=== PATIENT | female | born 1970 | race Caucasian/White ===

== ENCOUNTER 2019-04-06 12:16 | Day surgery (SDC) | payer BC ==
[~2019-04-06] VITALS: Ht 165.1 cm; Wt 67.8 kg
[2019-04-06] VITALS (20 sets, daily range): BP systolic 102–141; BP diastolic 49–67; PULSE 54–68; RESP 16–22; Ht 165.1 cm; Wt 67.8 kg
[2019-04-06] MEDS ORDERED: LACTATED RINGER'S 1,000 ML IV SCH (14:46)
--- NOTE | 2019-04-06 14:46 | HPN ---
Date/Time of Note Date/Time of Note DATE: 04/06/19 TIME: 14:46 Interval H&P Admission Note Pt. seen H&P reviewed: No system changes JERRY CHIU MD Apr 06, 2019 14:46
[2019-04-06] MEDS ORDERED: CEFAZOLIN 2 GM/50 ML (PMX) 50 ML IVPB ONE (15:00)
[2019-04-06] MEDS ORDERED: HEPARIN 5,000 UNIT/1 ML VIAL SC ONE ×2 (15:00→20:00)
--- NOTE | 2019-04-06 15:37 | PREAC ---
Date/Time of Note Date/Time of Note DATE: 04/06/19 TIME: 15:36 Anesthesia Eval and Record Evaluation Time Pre-Procedure Interview DATE: 04/06/19 TIME: 15:36 Age 49 Sex female NPO: 8 hrs Preoperative diagnosis Endometriosis Planned procedure Exploratory laparoscopy Past Medical History Past Medical History: None Surgery & Anesthesia Issues No known issue Meds Anticoagulation: No Beta Reggie within 24 hr: No Reason Beta Reggie not given: Pt. not on B-Reggie No Active Prescriptions or Reported Meds Current Medications Lactated Ringer's 1,000 ml @ 125 mls/hr Q8H IV ; Start 04/06/19 at 14:46 Meds reviewed: Yes Allergies Coded Allergies: No Known Allergy (Unverified , 04/06/19) Allergies Reviewed: Yes Labs/Studies Labs Reviewed: Reviewed by anesthesiologist Result Diagram: 04/06/19 1320 04/06/19 1320 Laboratory Tests 04/06/19 13:20 test: Negative Studies: ECG Pre-procedure Exam Last vitals Vital Signs Date Temp Pulse Resp B/P (MAP) Pulse Ox O2 O2 Flow FiO2 Time Delivery Rate 04/06/19 98.7 67 16 141/67 100 Room Air 13:00 (91) Airway: Adequate mouth opening, Adequate thyromental dist Mallampati: Mallampati II Teeth: Normal Lung: Normal Heart: Normal ASA Physical Status ASA physical status: 2 Emergency: None Planned Anesthetic General/MAC: ETT Planned Pain Management Sub-arachniod narcotics, Parenteral pain med Pre-operative Attestations Prior to commencing anesthesia and surgery, the patient was re-evaluated, there was verification of: *The patient's identity *The results of appropriate recent lab work and preoperative vital signs *The above evaluation not changing prior to induction *Anesthetic plan, risk benefits, alternative and complications discussed with patient/family; questions answered; patient/family understands, accepts and wishes to proceed. ISAMAR BEST MD Apr 06, 2019 15:37
[2019-04-06] MEDS ORDERED: MIDAZOLAM 1 MG/ML 2 ML INJ ONE (15:38)
[2019-04-06] MEDS ORDERED: morphine SULFATE/PF (10 MG/10 ML) INJ ONE (15:39)
[2019-04-06] MEDS ORDERED: FENTAnyl 50 MCG/ML VIAL ONE (15:39)
[2019-04-06] MEDS ORDERED: BUPIVACAINE 0.25%/EPI (SDV) 10 ML INJ ONE ×2 (16:21→16:53)
[2019-04-06] MEDS ORDERED: FUROSEMIDE 20 MG INJ ONE (18:00)
--- NOTE | 2019-04-06 18:03 | OPR ---
Date/Time of Note Date/Time of Note DATE: 04/06/19 TIME: 17:56 Operative Report Procedure Date: Apr 06, 2019 Preoperative Diagnosis Endometriosis Dense intra-abdominal adhesions Postoperative Diagnosis Same Operation/Procedure Performed Laparoscopic lysis of intestinal adhesions Surgeon see signature line Inspector Fuel Hose Dr. Gonzalez Anesthesia Type: general Estimated Blood Loss: none Transfusion none Specimen none Grafts/Implants none Complications none Pt Condition Post Procedure: stable Disposition: PACU Indications Patient is undergoing laparoscopic removal of bilateral ovarian cysts from endometriosis. Adhesions between the sigmoid colon and the ovary and uterus were encountered. I was intraoperatively consulted to help management via enterolysis Procedure Description An additional RUQ port was placed and thereafter the laparoscopic scissors were used to lyse adhesions between the bowel and the ovary and uterus taking care to avoid injury to bowel tissue. Some bleeding from some cut uterine tissue was encountered and this was controlled with johnson beam coagulation. The area of enterolysis was thoroughly inpected and confirmed to be free of injury. MANA ALLEN Apr 06, 2019 18:03
[2019-04-06] MEDS ORDERED: NEOSTIGMINE 3 MG/3 ML SYRINGE ONE (18:13)
[2019-04-06] MEDS ORDERED: LIDOCAINE 2% (SDV) 5 ML INJ ONE (18:13)
[2019-04-06] MEDS ORDERED: PROPOFOL 20 ML ONE (18:13)
[2019-04-06] MEDS ORDERED: ROCURONIUM 50 MG INJ ONE (18:13)
[2019-04-06] MEDS ORDERED: ONDANSETRON 4 MG INJ ONE (18:14)
[2019-04-06] MEDS ORDERED: GLYCOPYRROLATE 0.4 MG INJ ONE (18:14)
[2019-04-06] MEDS ORDERED: CEFAZOLIN 1 GM INJ ONE (18:18)
--- NOTE | 2019-04-06 18:21 | OPR ---
Date/Time of Note Date/Time of Note DATE: 04/06/19 TIME: 18:13 Operative Report Free Text/Dictation April 06, 2019 Procedure Date: Apr 06, 2019 Preoperative Diagnosis 1. Dyspareunia 2.Dysmenorrhea 3. Pelvic pain 4 bilateral. Ovarian endometrioma, symptomatic Patient requests surgical management Postoperative Diagnosis Severe pelvic endometriosis as well as bilateral ovarian endometrioma with obliterated cul-de-sac and adhesion of both endometrioma to the lateral pelvic fold some as well as adhesion of the sigmoid colon to posterior uterine wall noted. Small fibroid noted. Appears to be intramural. Evidence of inguinal hernia in the left side noted Operation/Procedure Performed Diagnostic laparoscopy Pelvic washing Laparoscopic bilateral ovarian cystectomy with fulguration of endometrial implants Extensive lysis of adhesion Intra-Op consult with general surgeon with lysis of adhesion of sigmoid to posterior uterine wall Surgeon see signature line Automatic Oven Operator Dr. Johnny Leonard MD Anesthesia Type: general, spinal Anesthesiologist: ISAMAR BEST MD Estimated Blood Loss: 50 - 100 ml's Transfusion none Specimen Bilateral ovarian cyst wall pelvic washing Grafts/Implants none Complications none Pt Condition Post Procedure: stable Disposition: PACU Procedure Description 49-year-old female with history of bilateral ovarian endometrioma and pelvic pain, dyspareunia dysmenorrhea that noted to have increased size of the bilateral ovarian endometrioma and desires to proceed with surgical management. Risk and benefit of procedure including risk of infection, bleeding, damage to surrounding structures including bowel and bladder and risk of transfusion including but not limited to blood borne infection including HIV, hepatitis B C and transfusion reaction as well as risk of conversion to open procedure discussed with patient informed consent was obtained. Patient was consented for diagnostic laparoscopy, laparoscopic bilateral ovarian cystectomy possible open possible blood transfusion possible lysis of adhesion possible any other indicated procedure. Patient then received 2 g of Ancef was taken to the OR. She received a dose of 5000 units of subcutaneous heparin due to the fact the patient was on OCP up to 3 4 days prior to surgery. Patient was then placed in the dorsolithotomy position. Exam under anesthesia performed after timeout procedure. Then after prepped and draped in a sterile fashion a weighted speculum placed inside the vagina. Anterior lip of the cervix grasped using tenaculum. Uterine depth was measured using uterine sound was noted to be about 11 inch. Then using Hegar dilators the cervix was serially dilated until it accommodated HUMI manipulator then the HUMI manipulator was placed and balloon was inflated and transfixed. Then the instrument removed from vagina. Gloves was changed. Attention was turned to the abdomen where first a 5 mm incision was made inside the umbilicus. Then using Veress needle after 2 stop sound and negative aspiration positive saline drop test confirmed accurate placement of the Veress needle. Insufflation started. Filling pressure was -3. Insufflation performed after adequate insufflation and the Veress needle was removed by using 5 mm trocar under direct visualization passed through the abdominal wall into the abdomen successfully. Intra-abdominal and pelvis cavity was visualized and evaluated. Uterus was in the midline with evidence of a 2 cm intramural fibroid. Then upper abdomen was also evaluated that was normal. There was evidence of inguinal hernia in the left side noted. Due to difficulty visualization of ovaries and tubes first the second trocar 5 mm in the left lower quadrant after negative transillumination test under direct visualization was passed through the abdominal wall and then this third trocar which was a 12 mm trocar in the right lower quadrant after negative transillumination test and under direct visualization passed through the abdominal wall. Then using a grasper ovaries and tubes in both side evaluated. There was evidence of dense adhesion of the ovary into the pelvic foci in both side and it appeared both ovaries and have endometrioma bilaterally. There was evidence of a dense adhesion of the posterior uterine wall to the sigmoid colon as well as obliterated cul-de-sac was also noted. At this point first attempted was made to perform lysis of adhesion of the ovarian cyst in the right side. First washing of the pelvis performed and fluid was sent to pathology then using atraumatic grasper and subsequently EndoShears scissor gentle leave the adhesion of the right endometrioma to the cul-de-sac was lysed and during lysis of adhesion the cyst was ruptured and chocolate cyst containing material was drained and was immediately suctioned. Then attempt was made to remove the cyst wall however due to dense adhesion I could be able to remove partially the cyst wall and the specimen was sent to pathology. Then the entire cyst wall bed was coagulated using argon. Then the procedure proceeded in a similar fashion in the left side where using atraumatic grasper as well as [place] attempt was made to lyse adhesion of the cyst in the left side from the left pelvic. However during the lysis of adhesion the cyst opened and chocolate cyst material was drained that was immediately suctioned. Again the cyst on the left side in a similar fashion in several specimen partially removed and was sent to pathology and then the entire bed of the cyst on the left side was also coagulated using argon. Good hemostasis of the operative site in both sides was obtained. There was evidence of dense adhesion of the sigmoid colon to the posterior uterine wall. Intra-Op consult with was performed with general surgeon who could be able to partially lyse adhesion of the sigmoid colon to the posterior uterine wall. Please refer to Dr. Leonard;s note for this part of dictation. The sigmoid colon and the bowel appeared to be intact during the procedure. Small archana to the muscle of the uterus in the posterior aspect where there was a dhesion of the sigmoid to the posterior uterine wall noted that appeared to be oozing mildly and the oozing was controlled using argon beam as well as packing using fibrillar. After irrigation and assurance about adequate hemostasis using negative pressure check then upper abdomen and the rest of the pelvis and the abdomen was visualized and evaluated. After assurance about adequate hemostasis then instrument removed. Desufflation of the abdomen and pelvis performed while patient was in deep Trendelenburg and then the skin is all 4 trocar site repaired using 4-0 Monocryl. Of note that the fourth trocar was placed as well in the right lateral abdomen by general surgeon during lysis of pelvic adhesion. Of note that at all times during the procedure attention was turned carefully to the bowel and ureter. Operative site and the cyst area was away from the ureter. Of note that due to significant dense adhesion in the cul-de-sac consistent with severe endometriosis could not be able to trace the ureter at the level of the cul-de-sac however area of operation were all away from the ureter. Ureters were seen and visualized at the level of the pelvic brim. After completion of the abdominal procedure the trocar site repaired and then the attention was turned to the vagina where the HUMI manipulator was removed after desufflation of the balloon. Patient tolerated the procedure well. Sponge lap needle counts were correct x2 patient was then transferred to recovery room in stable condition Due to significant lysis of pelvic adhesion and the fact that patient received spinal anesthesia by anesthesiologist and the risk of urinary retention with Duramorph decision was made to keep the patient overnight. JERRY CHIU MD Apr 06, 2019 18:21
--- NOTE | 2019-04-06 18:34 | PAC ---
Date/Time of Note Date/Time of Note DATE: 04/06/19 TIME: 18:34 Post-Anesthesia Notes Post-Anesthesia Note Last documented vital signs Vital Signs Date Temp Pulse Resp B/P (MAP) Pulse Ox O2 O2 Flow FiO2 Time Delivery Rate 04/06/19 98.7 67 16 141/67 100 Room Air 13:00 (91) Activity: WNL Respiratory function: WNL Cardiovascular function: WNL Mental status: Baseline Pain reasonably controlled: Yes Hydration appropriate: Yes Nausea/Vomiting absent: Yes Comments BP:112/56, P:78, Spo2:100%, T:98,8 ISAMAR BEST MD Apr 06, 2019 18:34
[2019-04-06] MEDS: LACTATED RINGER'S 1,000 ML IV SCH (18:50)
[2019-04-06] MEDS ORDERED: HYDROmorphONE 1 MG/5 ML IV SYRINGE IV PRN ×2 (19:00)
[2019-04-06] MEDS ORDERED: FENTAnyl 50 MCG/ML VIAL IV PRN (19:00)
[2019-04-06] MEDS ORDERED: ONDANSETRON 4 MG INJ IV PRN (19:00)
[2019-04-06] MEDS ORDERED: OXYCODONE/ACETAMINOPHEN (5/325) TAB PO PRN (19:00)
[2019-04-06] MEDS ORDERED: DIPHENHYDRAMINE 50 MG INJ IV PRN (19:00)
[2019-04-06] MEDS ORDERED: MEPERIDINE 25 MG INJ IV PRN (19:00)
[2019-04-06] MEDS ORDERED: METOCLOPRAMIDE 10 MG INJ IV PRN (19:00)
[2019-04-06] MEDS ORDERED: ACETAMINOPHEN 325 MG TAB PO PRN (19:00)
[2019-04-07 01:00] VITALS: BP 110/56; PULSE 67; RESP 18
[2019-04-07] MEDS: ONDANSETRON 4 MG INJ IV PRN ×2 (01:53→07:47)
[2019-04-07] MEDS: LACTATED RINGER'S 1,000 ML IV SCH (05:48)
[2019-04-07 07:18] VITALS: BP 111/58; PULSE 58; RESP 18
[2019-04-07] MEDS ORDERED: MAGNESIUM HYDROXIDE 30ML CUP PO ONE (11:30)
--- NOTE | 2019-04-07 11:43 | PD.PPDC ---
[facility] SET UP [employer]PERATOR [facility] Discharge Instruction Condition [id number] Patient Condition: [id number] Good Diet Rgzqu2Ld Diet: Wiepk7n Resume Regular Diet Activity/Restrictions [id number] Activity: [id number] Normal Activity [id number] Restrictions: [id number] No Exercising No Lifting No Driving Follow-up Follow-up with Physician: 3, Day/Days Provider Information: Jerry Chiu MD Return to clinic for [id number] [employer] Instructions: [id number] Fever greater than 101 Chills Worsening abdominal pain Excessive Vaginal Bleeding More than 2 pads per hour Unable to tolerate diet [id number] Surgical Instructions: [id number] Incisional Drainage Incisional Redness JERRY CHIU MD Apr 07, 2019 11:43
--- NOTE | 2019-04-07 11:52 | PN ---
Date/Time of Note Date/Time of Note DATE: 04/07/19 TIME: 11:44 Assessment/Plan VTE Prophylaxis Risk score (from Nsg)>0 risk: 4 SCD applied (from Nsg): Yes Pharmacological prophylaxis: NA/contraindicated Pharm contraindication: low risk/ambulating Lines/Catheters IV Catheter Type (from Nrsg): Peripheral IV Urinary Cath still in place: No Assessment/Plan Hospital Course s/p LSC bilateral ovarian cystectomy for Bilateral ovaran endometriomas Doing well Nausea, related to anesthesia Urinated, Ambulated, tolerated potato after received Zofran Vitals are stable Mild leukocytosis,reactive. Asymptomatic, afebile, abdomen soft. Normal bowel sounds audible I discussed with the patient about op findings and adhesion of the sigmoid in the back of the uterus. I explained to the patient signficant adhesion of the sigmoid colon that minimally lysed Discussed again with Dr. Leonard, No concern for inury or damage to the sigmoid or rectum and approved Discharge home. Patient doing well. Reports she feels well, I give the patient strict precaution if she feels any abdominal pain more than the base line, any fever, chills, inability to tolerate po, Vomiting , abdominal distension or any other concern to immediately RT to the hospital Vitals are stable and patient appears stable for discharge, I also gave her my direct office contact and my direct phone number to contact me for any concerns, Patient verbalized understaing. will see her in the clinic for followup in 2 days Result Diagram: 04/07/19 1113 04/06/19 1532 Results 24hrs Laboratory Tests Test 04/06/19 13:20 04/06/19 14:41 04/06/19 15:32 04/07/19 06:20 White Blood Count 7.7 Red Blood Count 4.74 Hemoglobin 13.9 14.4 Hematocrit 42.9 44.6 Mean Corpuscular 90.5 Volume Mean Corpuscular 29.3 Hemoglobin Mean Corpuscular 32.4 Hemoglobin Concent Red Cell Distribution 12.3 Width Platelet Count 219 Mean Platelet Volume 9.8 Immature Granulocytes 0.300 % Neutrophils % 66.7 Lymphocytes % 26.0 Monocytes % 6.2 Eosinophils % 0.5 Basophils % 0.3 Nucleated Red Blood 0.0 Cells % Immature Granulocytes 0.020 # Neutrophils # 5.2 Lymphocytes # 2.0 Monocytes # 0.5 Eosinophils # 0.0 Basophils # 0.0 Nucleated Red Blood 0.0 Cells # Sodium Level 138 137 Potassium Level 4.3 4.4 Chloride Level 106 106 Carbon Dioxide Level 26 26 Anion Gap 6 5 Blood Urea Nitrogen 10 9 Creatinine 0.77 0.76 Est Glomerular Filtrat > 60 > 60 Rate mL/min Glucose Level 84 79 Calcium Level 9.1 9.0 Lab Scanned Report LAB Prothrombin Time 12.1 Prothrombin Time Ratio 0.9 INR International 0.89 Normalized Ratio Activated 27.7 Partial Thromboplast Time Urine Color YELLOW Urine Clarity CLEAR Urine pH 6.0 Urine Specific [place] 1.024 Urine Ketones 1+ H Urine Nitrite NEGATIVE Urine Bilirubin NEGATIVE Urine Urobilinogen NEGATIVE Urine Leukocyte NEGATIVE Esterase Urine Microscopic RBC 56 H Urine Microscopic WBC 4 Urine Mucus FEW A Urine Hemoglobin 2+ H Urine Glucose NEGATIVE Urine Total Protein NEGATIVE Urine Test NEGATIVE Test 04/07/19 11:13 White Blood Count 11.2 #H Red Blood Count 4.34 Hemoglobin 12.8 Hematocrit 39.9 Mean Corpuscular 91.9 Volume Mean Corpuscular 29.5 Hemoglobin Mean Corpuscular 32.1 Hemoglobin Concent Red Cell Distribution 12.4 Width Platelet Count 206 Mean Platelet Volume 9.7 Immature Granulocytes 0.400 % Neutrophils % 76.7 Lymphocytes % 17.0 Monocytes % 5.5 Eosinophils % 0.2 Basophils % 0.2 Nucleated Red Blood 0.0 Cells % Immature Granulocytes 0.040 H # Neutrophils # 8.6 H Lymphocytes # 1.9 Monocytes # 0.6 Eosinophils # 0.0 Basophils # 0.0 Nucleated Red Blood 0.0 Cells # Subjective 24 Hr Interval Summary Free Text/Dictation Patient was nauseated and resolved after she received Zofran. Could be able to tolerate PO , urinated, did not require pain meds x 12 hours Ambulating in the room. Denies any fever or chills. Denies any nausea or vomiting now. Desires to go home. Constitutional: no complaints Eyes: no complaints ENT: no complaints Respiratory: no complaints Cardiovascular: no complaints Gastrointestinal: No no complaints, No pain, No blood, No constipation, No decreased appetite, No diarrhea, No flatus, No nausea, No passing stool, No vomiting, No other Genitourinary: bleeding; No no complaints, No dysuria, No discharge, No flank pain, No hematuria, No other Musculoskeletal: No no complaints, No back pain, No bone/joint pain, No neck pain, No restricted range of motion, No swelling, No other Skin: No no complaints, No bruising, No erythema, No laceration, No pruritis, No rash, No skin lesions, No other Neurologic: No no complaints, No confusion, No dizziness, No focal-weakness, No headache, No syncope, No seizure, No other Endocrine: No no complaints, No polyuria, No polydypsia, No dry skin, No temp intolerance, No other Lymphatic: No no complaints, No adenopathy, No tender nodes, No lymphadema, No other Psychological: anxiety Immunologic: No no complaints, No immunodeficiency, No pruritis, No rhinitis, No urticaria, No other Exam/Review of Systems Exam Vitals Vital Signs Date Temp Pulse Resp B/P (MAP) Pulse Ox O2 O2 Flow FiO2 Time Delivery Rate 04/07/19 98.2 58 18 111/58 99 Room Air 07:18 (75) Intake and Output 04/06/19 04/06/19 04/07/19 1515:00 23:00 07:00 IntakeIntake Total 1300 ml OutputOutput Total 100 ml 1850 ml BalanceBalance -100 ml -550 ml Constitutional: alert, oriented, well developed Psych: no complaints Head: normocephalic, atraumatic Eyes: nl conjunctiva, EOMI, nl lids ENMT: nl external ears & nose Neck: supple Respiratory: clear to auscultation Cardiovascular: regular rate and rhythm, nl pulses Gastrointestinal: soft, other (Abdomen non distended, Incision clean and dry and intact. No distension, soft, ) Extremities: No normal pulses, No calf tenderness, No cyanosis, No clubbing, No edema, No pitting pedal edema, No palpable cord, No tenderness, No other Neurological: No AFTERNOON NANNY II-XII intact, No nl mental status, No nl speech, No nl strength, No confused, No DTR's symmetric, No focal weakness, No lethargic, No numbness, No reflexes, No unresponsive, No other Skin: No nl turgor, No rash or lesions, No diaphoresis, No ecchymosis, No laceration, No puncture, No other Lymph: No nl lymph nodes, No enlarged, No nontender, No other Results Results 24hrs Laboratory Tests Test 8/9/19 13:20 04/06/19 14:41 04/06/19 15:32 04/07/19 06:20 White Blood Count 7.7 Red Blood Count 4.74 Hemoglobin 13.9 14.4 Hematocrit 42.9 44.6 Mean Corpuscular 90.5 Volume Mean Corpuscular 29.3 Hemoglobin Mean Corpuscular 32.4 Hemoglobin Concent Red Cell Distribution 12.3 Width Platelet Count 219 Mean Platelet Volume 9.8 Immature Granulocytes 0.300 % Neutrophils % 66.7 Lymphocytes % 26.0 Monocytes % 6.2 Eosinophils % 0.5 Basophils % 0.3 Nucleated Red Blood 0.0 Cells % Immature Granulocytes 0.020 # Neutrophils # 5.2 Lymphocytes # 2.0 Monocytes # 0.5 Eosinophils # 0.0 Basophils # 0.0 Nucleated Red Blood 0.0 Cells # Sodium Level 138 137 Potassium Level 4.3 4.4 Chloride Level 106 106 Carbon Dioxide Level 26 26 Anion Gap 6 5 Blood Urea Nitrogen 10 9 Creatinine 0.77 0.76 Est Glomerular Filtrat > 60 > 60 Rate mL/min Glucose Level 84 79 Calcium Level 9.1 9.0 Lab Scanned Report LAB Prothrombin Time 12.1 Prothrombin Time Ratio 0.9 INR International 0.89 Normalized Ratio Activated 27.7 Partial Thromboplast Time Urine Color YELLOW Urine Clarity CLEAR Urine pH 6.0 Urine Specific [place] 1.024 Urine Ketones 1+ H Urine Nitrite NEGATIVE Urine Bilirubin NEGATIVE Urine Urobilinogen NEGATIVE Urine Leukocyte NEGATIVE Esterase Urine Microscopic RBC 56 H Urine Microscopic WBC 4 Urine Mucus FEW A Urine Hemoglobin 2+ H Urine Glucose NEGATIVE Urine Total Protein NEGATIVE Urine Test NEGATIVE Test 04/07/19 11:13 White Blood Count 11.2 #H Red Blood Count 4.34 Hemoglobin 12.8 Hematocrit 39.9 Mean Corpuscular 91.9 Volume Mean Corpuscular 29.5 Hemoglobin Mean Corpuscular 32.1 Hemoglobin Concent Red Cell Distribution 12.4 Width Platelet Count 206 Mean Platelet Volume 9.7 Immature Granulocytes 0.400 % Neutrophils % 76.7 Lymphocytes % 17.0 Monocytes % 5.5 Eosinophils % 0.2 Basophils % 0.2 Nucleated Red Blood 0.0 Cells % Immature Granulocytes 0.040 H # Neutrophils # 8.6 H Lymphocytes # 1.9 Monocytes # 0.6 Eosinophils # 0.0 Basophils # 0.0 Nucleated Red Blood 0.0 Cells # Medications Medication Current Medications Lactated Ringer's 1,000 ml @ 100 mls/hr Q10H IV Last administered on 04/07/19at 05:48; Admin Dose 100 MLS/HR; Start 04/06/19 at 18:32 Acetaminophen (Tylenol Tab) 650 mg Q4H PRN PO PAIN LEVEL 1-5; Start 04/06/19 at 19:00 Oxycodone/ Acetaminophen (Percocet (5/ 325)) 1 tab Q4H PRN PO PAIN LEVEL 6-10 Last administered on 04/06/19at 22:23; Admin Dose 1 TAB; Start 04/06/19 at 19:00 Ondansetron HCl (Zofran Inj) 4 mg Q6H PRN IV NAUSEA AND/OR VOMITING Last administered on 04/07/19at 07:47; Admin Dose 4 MG; Start 04/06/19 at 19:00 Magnesium Hydroxide (Milk Of Mag) 15 ml ONCE ONCE PO ; Start 04/07/19 at 11:30; Stop 04/07/19 at 11:31; Status UNJERRY SIDDIQI MD Apr 07, 2019 11:52
--- NOTE | 2019-04-07 11:54 | DS ---
Date/Time of Note Date/Time of Note DATE: 04/07/19 TIME: 11:52 Discharge Summary Admission/Discharge Info Admit Date/Time 04/07/2019 Discharge Date/Time Discharge Diagnosis Endometriosis Bilateral ovarian endometrioma Pelvic severe adhesion Pelvic pain Dysmenorrhea Dysparaunia Patient Condition: Good Consults N/A Procedures Diagnostic LSC, LSC ovarian bilateral cystectomy, LYSis of adhesion, Drainage and removal of ovarian cysts Hospital Course s/p LSC bilateral ovarian cystectomy for Bilateral ovaran endometriomas Doing well Nausea, related to anesthesia Urinated, Ambulated, tolerated potato after received Zofran Vitals are stable I discussed with the patient about op findings and adhesion of the sigmoid in the back of the uterus. I explained to the patient signficant adhesion of the sigmoid colon that minimally lysed Discussed again with Dr. Leonard, No concern for inury or damage to the sigmoid or rectum and approved Discharge home. Patient doing well. Reports she feels well, I give the patient strict precaution if she feels any abdominal pain more than the base line, any fever, chills, inability to tolerate po, Vomiting , abdominal distension or any other concern to immediately RT to the hospital Vitals are stable and patient appears stable for discharge, I also gave her my direct office contact and my direct phone number to contact me for any concerns, Patient verbalized understaing. will see her in the clinic for followup in 2 days Home Meds No Active Prescriptions or Reported Meds Follow-up Plan in 2 days with the offfice and 2 weeks post op Primary Care Provider Not On Staff Doctor Time spent on discharge: > 30 minutes Pending Labs Laboratory Tests Test 04/06/19 13:20 04/06/19 14:41 04/06/19 15:32 04/07/19 06:20 White Blood 7.7 Count 10^3/ul (4.8-10 .8) Red Blood 4.74 Count 10^6/ul (4.20-5 .40) Hemoglobin 13.9 14.4 g/dl (12.0-16.0 g/dl (12.0-16.0 ) ) Hematocrit 42.9 44.6 % (37.0-47.0) % (37.0-47.0) Mean 90.5 Corpuscular fl (82.0-101.0) Volume Mean 29.3 Corpuscular pg (29.0-33.0) Hemoglobin Mean 32.4 Corpuscular g/dl (32.0-37.0 Hemoglobin Conc ) ent Red Cell 12.3 Distribution % (11.5-14.5) Width Platelet Count 219 10^3/UL (140-41 5) Mean Platelet 9.8 Volume fl (7.4-10.4) Immature 0.300 Granulocytes % % (0.001-0.429) Neutrophils % 66.7 % (39.0-77.0) Lymphocytes % 26.0 % (15.0-51.0) Monocytes % 6.2 % (0.0-11.0) Eosinophils % 0.5 % (0.0-7.0) Basophils % 0.3 % (0.0-2.0) Nucleated Red 0.0 Blood Cells % /100WBC (0.0-0. 0) Immature 0.020 Granulocytes # 10^3/ul (0.0-0. 031) Neutrophils # 5.2 10^3/ul (1.6-7. 5) Lymphocytes # 2.0 10^3/ul (0.8-2. 9) Monocytes # 0.5 10^3/ul (0.3-0. 9) Eosinophils # 0.0 10^3/ul (0.0-0. 5) Basophils # 0.0 10^3/ul (0.0-0. 1) Nucleated Red 0.0 Blood Cells # 10^3/ul (0.0-0. 0) Sodium Level 138 137 mmol/L (135-144 mmol/L (135-144 ) ) Potassium 4.3 4.4 Level mmol/L (3.5-5.1 mmol/L (3.5-5.1 ) ) Chloride Level 106 106 mmol/L (97-110) mmol/L (97-110) Carbon Dioxide 26 26 Level mmol/L (21-31) mmol/L (21-31) Anion Gap 6 (5-13) 5 (5-13) Blood Urea 10 mg/dl (7-20) 9 mg/dl (7-20) Nitrogen Creatinine 0.77 0.76 mg/dl (0.44-1.0 mg/dl (0.44-1.0 0) 0) Est Glomerular > 60 > 60 Filtrat mL/min (>60) mL/min (>60) Rate mL/min Glucose Level 84 79 mg/dl (70-220) mg/dl (70-220) Calcium Level 9.1 9.0 mg/dl (8.4-10.2 mg/dl (8.4-10.2 ) ) Lab Scanned LAB [id number] Report Prothrombin 12.1 Time Sec (11.9-14.9) Prothrombin 0.9 Time Ratio INR 0.89 International Normalized Rati o Activated 27.7 Partial Thrombo Sec (23.0-35.0) plast Time Urine Color YELLOW (YELLOW ) Urine Clarity CLEAR (CLEAR) Urine pH 6.0 (5.0-9.0) Urine Specific 1.024 (1.003-1 [place] .030) Urine Ketones 1+ mg/dL (NEGATIV E) Urine Nitrite NEGATIVE mg/dL (NEGATIV E) Urine NEGATIVE Bilirubin mg/dL (NEGATIV E) Urine NEGATIVE Urobilinogen mg/dL (NEGATIV E) Urine Leukocyte NEGATIVE Keshawn/u Esterase l Urine 56 /HPF (0-5) Microscopic RBC Urine 4 /HPF (0-5) Microscopic WBC Urine Mucus FEW /HPF (NONE SEEN) Urine 2+ Hemoglobin mg/dL (NEGATIV E) Urine Glucose NEGATIVE mg/dL (NEGATIV E) Urine Total NEGATIVE Protein mg/dl (NEGATIV E) Urine NEGATIVE (NEGA Test TIVE) Test 04/07/19 11:13 White Blood 11.2 Count 10^3/ul (4.8-10 .8) Red Blood 4.34 Count 10^6/ul (4.20-5 .40) Hemoglobin 12.8 g/dl (12.0-16.0 ) Hematocrit 39.9 % (37.0-47.0) Mean 91.9 Corpuscular fl (82.0-101.0) Volume Mean 29.5 Corpuscular pg (29.0-33.0) Hemoglobin Mean 32.1 Corpuscular g/dl (32.0-37.0 Hemoglobin Conc ) ent Red Cell 12.4 Distribution % (11.5-14.5) Width Platelet Count 206 10^3/UL (140-41 5) Mean Platelet 9.7 Volume fl (7.4-10.4) Immature 0.400 Granulocytes % % (0.001-0.429) Neutrophils % 76.7 % (39.0-77.0) Lymphocytes % 17.0 % (15.0-51.0) Monocytes % 5.5 % (0.0-11.0) Eosinophils % 0.2 % (0.0-7.0) Basophils % 0.2 % (0.0-2.0) Nucleated Red 0.0 Blood Cells % /100WBC (0.0-0. 0) Immature 0.040 Granulocytes # 10^3/ul (0.0-0. 031) Neutrophils # 8.6 10^3/ul (1.6-7. 5) Lymphocytes # 1.9 10^3/ul (0.8-2. 9) Monocytes # 0.6 10^3/ul (0.3-0. 9) Eosinophils # 0.0 10^3/ul (0.0-0. 5) Basophils # 0.0 10^3/ul (0.0-0. 1) Nucleated Red 0.0 Blood Cells # 10^3/ul (0.0-0. 0) JERRY CHIU MD Apr 07, 2019 11:54
== END 2019-04-07 12:09 | disposition home or self-care (01) ==
LOC: SDS 12:16 → MS1 04-07 03:00 → SDS 04-07 12:09
PROVIDERS: ATTEND Obstetrics & Gynecology Obstetrics
DX: N80.3 Endometriosis of pelvic peritoneum (principal); N80.1 Endometriosis of ovary; K66.0 Peritoneal adhesions (postprocedural) (postinfection)
CPT/HCPCS: 58662; 80048; 81001; 84703; 85014; 85018; 85025; 85610; 85730; 86850; 86900; 86901; 87086; 88104; 88304; J0690; J1644; J2250; J2274; J2405; J2710; J3010; J7120; J1940